=== PATIENT | male | born 1995 | race Caucasian/White ===

== ENCOUNTER 2021-01-09 18:06 | Emergency (ER) | payer SELFPAY ==
[2021-01-09 18:11] VITALS: BP 141/84; PULSE 100; RESP 14; TEMP 37.2; O2SAT 99; BMI 26.4
[2021-01-09 19:14] LABS: COVID-19 Test Negative (Negative); IDNOW Serial# 9DD0AD1C
[2021-01-09 19:23] LABS: Appearance Urine CLEAR; Color Urine YELLOW; Glucose Urine UA NEG (NEG); Leukocyte Esterase Urine NEG (NEG); Nitrite Urine NEG (NEG); Specific Gravity - Urine >= 1.030 (1.005-1.025); Urine Blood NEG (NEG); Urine Ketones 5 MG/DL (NEG); Urine Protein NEG (NEG-TRACE)
[2021-01-09 19:55] LABS: Amphetamine Screen Urine Not Detected (Not Detect); Barbiturates, Urine Not Detected (Not Detect); Benzodiazepines Screen Urine Not Detected (Not Detect); Cannabinoid Screen Urine POSITIVE (Not Detect); Cocaine Screen Urine Not Detected (Not Detect); Opiate Screen Urine Not Detected (Not Detect); Phencyclidine Screen Urine Not Detected (Not Detect)
--- NOTE | 2021-01-09 23:11 | PC.NURSE ---
Patient just got seen by N, disposition per N is d/c home and f/u with partial program, no distress observed/reported, will continue to monitor
--- NOTE | 2021-01-09 23:13 | ED.PSYCH ---
HPI - Psych General Chief Complaint: Psychiatric Symptoms Stated Complaint: si Time Seen by Provider: 01/09/21 21:09 Source: patient and other ([facility] crisis counselor) Mode of arrival: ambulatory Limitations: no limitations History of Present Illness HPI Narrative: 25-year-old male who presents emergency department for evaluation of suicidal ideation and increased depression. The patient did reported the following to the nurse: auditory hallucinations and increased depression with suicidal ideation without a plan. The patient states that he has been thinking a lot but has not actually hearing voices. He states that he has been very depressed and his recently moved out on him in August of 2020. The patient reported to the [facility] crisis counselorthat his starting to date and the patient sent his a picture of himself with a knife to his neck in order to ruin her date. When I interviewed the patient, he denied being suicidal or homicidal. He states that he is depressed he does want to get some counseling. He denied auditory or visual hallucinations. Related Data Allergies Allergy/AdvReac Type Severity Reaction Status Date / Time amoxicillin [AMOXICILLIN] Allergy Unknown HIVES Unverified 02/28/20 16:25 Penicillins [PENICILLINS] Allergy Unknown HIVES Unverified 02/28/20 16:25 Sulfa (Sulfonamide Allergy Unknown HIVES Unverified 02/28/20 16:25 Antibiotics) [SULFA (SULFONAMIDE ANTIBIOTICS)] Review of Systems Review of Systems: Yes all other systems are reviewed and are negative [facility] Past Medical History [facility] Narrative: Past medical history: Depression. Social history: He denied tobacco use, occasionally drinks alcohol, he occasionally smokes marijuana, he denies any other drug use. Medical History (Updated 01/09/21 @ 23:25 by Daniel Lyn MD) Suicidal behavior Social History Social History Advance Directives: No Advance Directives Information Provided: Yes Physical Exam Vital Signs: Vital Signs: Last Vital Signs Temp 98.9 F 01/09/21 18:11 Pulse 100 01/09/21 18:11 Resp 14 01/09/21 18:11 BP 141/84 H 01/09/21 18:11 Pulse Ox 99 01/09/21 18:11 Body Mass Index 26.4 Const: General: cooperative and healthy appearing Orientation/consciousness: oriented to person and oriented to place Limitations: no limitations HENMT: Head: Yes normal to inspection, Yes normocephalic and Yes atraumatic Ears: external ears normal General nose exam: Normal external nose present Face and sinus: Yes normal facial exam Mouth: Normal oral and palatal mucosa present Throat: Yes posterior oropharynx normal Eyes: Periorbital: periorbital findings normal Eyelids: Yes eyelids normal Conjunctivae: conjunctivae normal Sclerae: sclerae normal Corneas: corneas normal Pupils: Equal, round and reactive pupils present Direct Ophthalmoscopy: normal light reflex Neck: Neck: Yes full ROM, Yes no lymphadenopathy, Yes no meningeal signs, Yes trachea midline and Yes supple Chest: Chest palpation & inspection: normal inspection of the chest and normal palpation of entire chest wall Resp: Effort & Inspection: normal respiratory effort and able to speak in complete sentences Auscultation: clear to auscultation bilaterally Cardio: Rate: regular rate Rhythm: regular rhythm Heart sounds: S1 normal heart sound present, S2 normal heart sound present and no murmurs GI: Inspection: Yes normal to inspection Palpation (GI): Soft to palpation, nontender, no guarding, not rigid and No hepatosplenomegaly present : General: Yes no CVA tenderness Back/Spine/Pelvis: Back: no CVA tenderness Cervical Spine: normal cervical lordosis Thoracic/Lumbar Spine: thoracic and lumbar spine normal to inspection Skin: Lesions: no lesions Rashes: no rashes Wounds: no wounds Neuro: General: oriented to person, oriented to place and no meningeal signs Cranial nerves: Yes CN's II-XII intact bilaterally and Yes Equal, round and reactive pupils present Cognition (Neuro): normal cognition Motor exam (neuro): 5/5 motor strength present throughout Extrem: General: Yes normal to inspection and Yes full ROM Psych: Appearance: well kempt Mental Status: mental status grossly normal Speech and movement: Normal speech and movement present Affect: normal affect Attitude: cooperative Thought process: Normal thought process present Thought content: Normal thought content present Course Course Course Narrative: 25-year-old male who presents emergency department for evaluation of depression. Vital signs revealed a slightly high blood pressure of 141/84 otherwise was unremarkable. His physical examination was normal. During my interview the patient denied auditory visual hallucinations. He denied being suicidal or homicidal. Laboratory evaluation revealed a normal urinalysis, urine drug screen positive for marijuana and a negative COVID-19 test. At this time, the patient is not suicidal or homicidal and he was offered a partial outpatient program by [facility]. The patient is interested in pursuing this program and he will be discharged home with information regarding this treatment plan. Discharge Plan Discharge Clinical Impression: Depression Qualifiers: Depression Type: unspecified Qualified Code(s): F32.9 - Major depressive disorder, single episode, unspecified Patient Disposition: Home, Self-Care Instructions: Depression (ED) Additional Instructions: With an you were seen by our [facility] crisis counselor Follow-up with [facility] as per their instructions to try to get into a partial hospitalization outpatient program. Please return to the emergency department if you feel like your depressions getting worse, if you feel like you are going to hurt herself or hurt anyone else.
== END 2021-01-09 23:38 | disposition home or self-care (01) ==
PROVIDERS: Emergency Provider Emergency Medicine Emergency Medical Services
DX: F32.9 Major depressive disorder, single episode, unspecified (principal); R45.851 Suicidal ideations; Z20.822 Contact with and (suspected) exposure to COVID-19; R03.0 Elevated blood-pressure reading, without diagnosis of hypertension; F12.90 Cannabis use, unspecified, uncomplicated
CPT/HCPCS: 36415; 80307; 81003; 87635; 99283